=== PATIENT | female | born 1965 | race Caucasian/White ===

== ENCOUNTER 2016-11-09 05:34 | Inpatient (IN) | payer OTHER ==
[2016-11-09] VITALS (33 sets, daily range): BP systolic 106–149; BP diastolic 54–96; PULSE 57–87; RESP 13–22; TEMP 99; Ht 167.6 cm; Wt 75.0 kg
[~2016-11-09] VITALS: Ht 167.6 cm; Wt 75.0 kg
--- NOTE | 2016-11-09 05:53 | RADRPT ---
PROCEDURE: CT brain without contrast. CLINICAL INDICATION: Stroke. TECHNIQUE: CT scan of the brain was performed on a multi-detector high-resolution CT scanner. Co ntiguous axial images were obtained from the skull base to the vertex without intravenous contrast. Coronal and sagittal reformatted images were also obtained. Images were reviewed on the PACS works tation. One or more of the following dose reduction techniques were used: - Automated exposure control. - Adjustment of the mA and/or kV according to patient size. - Use of iterative reconstruction technique. Exam CTD/vol = 45.01 mGy. Total exam DLP = 720.23 mGy-cm. COMPARISON: None. FINDINGS: There is an area of parenchymal hemorrhage centered within the left basal ganglia measuring 2.3 x 1. 3 cm with mild adjacent edema. There are chronic lacunar infarcts within the right thalamus. The chong tricles and cortical sulci are within normal limits for patient's age. There is no midline shift. Th ere is no abnormal extra-axial collection. The calvarium is intact. There is no evidence of fracture. Visualized paranasal sinuses and mastoid air cells are clear. IMPRESSION: Area of parenchymal hemorrhage centered within the left basal ganglia measuring 2.3 x 1.3 cm. There is no midline shift. Chronic lacunar infarcts within the right thalamus. A call report was made to Dr. Norton at 05:46 a.m. .Jonnathan Copeland MD, MD Date Time Electronically viewed and signed by .Jonnathan Copeland MD, MD on 11/09/2016 05:52 .T/
[2016-11-09] MEDS ORDERED: niCARdipine-NS 0.1MG/ML DRIP 200 ML IV SCH (06:00)
--- NOTE | 2016-11-09 06:06 | ERA ---
ER Documentation Chief Complaint Date/Time DATE: 11/09/16 TIME: On arrival Chief Complaint HPI . . . The patient is a 51-year-old female, presenting to the ER because of acute headache, acute right-sided weakness that began about 4:45 AM while she was at work. She complains of headache, slurred speech, denies chest pain, dyspnea, abdominal pain, vomiting, dysuria, diarrhea. She does not smoke nor drink. Past medical history: Hypertension Past surgical history: None ROS All systems reviewed and are negative except as per history of present illness. Physical Exam Vitals Vital Signs Date Time Temp Pulse Resp B/P Pulse Ox O2 Delivery O2 Flow Rate FiO2 11/09/16 05:40 99.0 92 16 228/147 94 Nasal Cannula 2.0 11/09/16 05:40 99.0 88 16 228/147 94 Physical Exam Const: No acute distress. Head: Atraumatic. Eyes: Normal Conjunctiva. ENT: Normal External Ears, Nose and Mouth. Neck: Full range of motion. No meningismus. Resp: Clear to auscultation bilaterally. Cardio: Regular rate and rhythm. Abd: Soft, non distended, normal bowel sounds, non tender. Skin: No petechiae or rashes. Back: No midline or flank tenderness. Ext: No cyanosis, or edema. Neur: Awake and alert.Left facial droop, right upper and right lower extremity 3+, left upper and left lower extremity 5/5 Psych: Normal Mood and Affect. Results 24 hrs Current Medications Medications (Trade) Dose Ordered Sig/Tenzin Route PRN Reason Start Time Stop Time Status Last Admin Dose Admin Nicardipine HCl (Cardene Iv) 200 ml @ 50 mls/hr TITRATE IV 11/09/16 06:00 11/09/16 05:55 Procedures/[place] [id number] Radiology Main Line: [phone] DIAGNOSTIC IMAGING REPORT Patient: DANA MENDENHALL : 1965 Age: 51 Sex: M MR #: [id number] DOS: 11/09/16 0537 Ordering MD: LUCÍA HOGUE MD Location: E/R Room/Bed: PROCEDURE: CT brain without contrast. CLINICAL INDICATION: Stroke. TECHNIQUE: CT scan of the brain was performed on a multi-detector high- resolution CT scanner. Contiguous axial images were obtained from the skull base to the vertex without intravenous contrast. Coronal and sagittal reformatted images were also obtained. Images were reviewed on the PACS workstation. One or more of the following dose reduction techniques were used: - Automated exposure control. - Adjustment of the mA and/or kV according to patient size. - Use of iterative reconstruction technique. Exam CTD/vol = 45.01 mGy. Total exam DLP = 720.23 mGy-cm. COMPARISON: None. FINDINGS: There is an area of parenchymal hemorrhage centered within the left basal ganglia measuring 2.3 x 1.3 cm with mild adjacent edema. There are chronic lacunar infarcts within the right thalamus. The ventricles and cortical sulci are within normal limits for patient's age. There is no midline shift. There is no abnormal extra-axial collection. The calvarium is intact. There is no evidence of fracture. Visualized paranasal sinuses and mastoid air cells are clear. IMPRESSION: Area of parenchymal hemorrhage centered within the left basal ganglia measuring 2.3 x 1.3 cm. There is no midline shift. Chronic lacunar infarcts within the right thalamus. A call report was made to Dr. Hogue at 05:46 a.m. .Jonnathan Copeland MD, Date Time Electronically viewed and signed by .Jonnathan Copeland MD, MD on 11/09/2016 05:52 .T/ CC: LUCÍA HOGUE Chest x-ray and all labs are pending MEDICAL MAKING DECISION: The patient is a 51-year-old female, presenting with acute hemorrhagic stroke with right hemiparesis, acute hypertensive emergency. She was started on Cardene IV drip maintained systolic blood pressure between 130-140. Consultation: I discussed the person with the stroke neurologist Dr Mirza after exmining the patient and on her way to radiology. I discussed neurosurgeon Dr Arreola at 5:52 am, who was made aware of the CT scan finding and patient condition. He accepted the consult Departure Diagnosis: Primary Impression: Hemorrhagic stroke Additional Impressions: Right hemiparesis Hypertensive emergency Condition: Critical Comments I discussed the findings with the patient. I discussed the patient with the on- call hospitalist Dr. Feng at 5:55 am who was made aware of the pending lab, the treatment, the patient condition. The patient is admitted to ICU Critical Care: Time: 35 minutes excluding all billable procedures. Treatments/Evaluations: Close monitoring and treatment of unstable vital signs, cardiorespiratory, and neurologic status, while maintaining tight balance of fluid, respiratory, and cardiac interventions. LUCÍA HOGUE MD Nov 09, 2016 06:06
[2016-11-09] MEDS ORDERED: SOD CHLORIDE 0.9% 1,000 ML IV SCH (06:33)
[2016-11-09 06:37] LABS: BASOPHILS % 0.4 % (0.0-2.0); EOSINOPHILS # 0.2 10^3/ul (0.0-0.5); EOSINOPHILS % 2.4 % (0.0-7.0); HEMOGLOBIN 14.1 g/dl (14.0-18.0); LYMPHOCYTES # 2.2 10^3/ul (0.8-2.9); LYMPHOCYTES % 25.8 % (15.0-51.0); MEAN CORPUSCULAR HEMOGLOBIN 30.2 pg (29.0-33.0); MEAN CORPUSCULAR HGB CONC 34.4 g/dl (32.0-37.0); MEAN CORPUSCULAR VOLUME 87.8 fl (82.0-101.0); MEAN PLATELET VOLUME 9.7 fl (7.4-10.4); MONOCYTE # 0.5 10^3/ul (0.3-0.9); MONOCYTES % 5.6 % (0.0-11.0); NEUTROPHILS % 65.6 % (39.0-77.0); PLATELET COUNT 340 10^3/UL (140-415); RED BLOOD COUNT 4.67 10^6/ul (4.70-6.10); RED CELL DISTRIBUTION WIDTH 12.9 % (11.5-14.5); WHITE BLOOD COUNT 8.4 10^3/ul (4.8-10.8)
--- NOTE | 2016-11-09 06:43 | STROKE ---
Date/Time of Note Date/Time of Note DATE: 11/09/16 TIME: 06:10 Patient Information General Patient location: emergency Arrival Date Age 51 Gender male Weight 0 g Vital Signs Vital Signs Vital Signs Date Time Temp Pulse Resp B/P Pulse Ox O2 Delivery O2 Flow Rate FiO2 11/09/16 05:40 99.0 92 16 228/147 94 Nasal Cannula 2.0 History & Physical Patient History Notes Pt Hx Reviewed History of Present Illness 51yo F presents with acute onset right sided weakness. Patient woke up normal at 4:45am and developed sudden onset slurred speech and right sided weakness at 5am. Review of Systems Constitutional: no symptoms reported EENTM: no symptoms reported Respiratory: no symptoms reported Cardiovascular: no symptoms reported Gastrointestinal: no symptoms reported Genitourinary: no symptoms reported Musculoskeletal: no symptoms reported Skin: no symptoms reported Psychiatric/Neurological: no symptoms reported All Other Systems: Reviewed and Negative NIH Stroke Scale NIH Stroke Scale 1A - Level of Conciousness: 0 - Alert keenly [id number] LOC Questions: 0 - Answers both [id number] - LOC Commands: 0 - Performs both tasks2 - Best Gaze: 0 - Normal3 - Visual: 0 - No visual loss4 - Facial Palsy: 2 - Complete [id number] - Motor Arm - Left: 1 - [id number] - Motor Arm - Right: 0 - No drift 6A - Motor Leg - Left: 2 - Some effort to [id number] - Motor Leg - Right: 0 - No drift7 - Limb Ataxia: 0 - Absent8 - Sensory: 0 - Normal9 - Best Language: 0 - No aphasia or normalDysarthria: 1 - Mild to [id number] - Extinction and inattentio: 0 - No abnormalityTotal Score: 6 Date/Time Recorded DATE: 11/09/16 TIME: 06:10 Submitted By Tyrone Jin t-PA Imaging Review Imaging Reviewed: Yes Date/Time Imaging Reviewed DATE: 11/09/16 TIME: 06:10 Imaging Findings left basal ganglia hemorrhage t-PA Administration Recommendation: No Weight 0 g Recommedation submitted by Tyrone Jin Reason t-PA not Recommended hemorrhage seen on CT t-PA Not Recommended Date/Time 11/09/16 5:55am Recommendations Impression Diagnosis intracerebral hemorrhage Recommendation 51yo F presents with acute onset right sided weakness. Neurological exam is notable for right face, arm, and leg weakness and mild dysarthria. CT Head demonstrates left basal ganglia hemorrhage. Patient has had intracerebral hemorrhage. ICH score is 0. I recommend neurosurgery consultation and maintain systolic blood pressure less than 140mmg Hg. I recommend repeat CT head in 4 hours. Diagnostic Labs: Lipid Proile CMP CBC w/Diff Coags Therapy: Physical Therapy Speech Therapy Occupational Therapy Misc. Recommendations: Bedside Swallow Evaluation Pnumatic Compression Devices Stroke Education Smoking Education TYRONE JIN Nov 09, 2016 06:43
[2016-11-09 06:44] LABS: ADD UMIC YES; UR ASCORBIC ACID NEGATIVE (NEGATIVE); UR BACTERIA FEW /HPF (NONE SEEN); UR BILIRUBIN (Dip) NEGATIVE (NEGATIVE); UR BLOOD (Dip) NEGATIVE (NEGATIVE); UR CLARITY CLEAR (CLEAR); UR COLOR STRAW (YELLOW); UR GLUCOSE (Dip) NEGATIVE (NEGATIVE); UR KETONES (Dip) NEGATIVE (NEGATIVE); UR LEUKOCYTE ESTERASE (Dip) TRACE Leu/ul (NEGATIVE); UR NITRITE (Dip) NEGATIVE (NEGATIVE); UR RBC 1 /HPF (0-5); UR TOTAL PROTEIN (Dip) 2+ mg/dl (NEGATIVE); UR UROBILINOGEN (Dip) NEGATIVE (NEGATIVE)
[2016-11-09 07:00] LABS: INR 0.86; PROTIME 11.7 Sec (12.2-14.2); PT RATIO 0.9
[2016-11-09] MEDS ORDERED: niCARdipine 25 MG in SOD CHLORIDE 0.9% 240 ML IV SCH ×2 (07:00→12:00)
[2016-11-09] MEDS ORDERED: ACETAMINOPHEN 650 MG SUPP PR PRN (07:00)
[2016-11-09] MEDS ORDERED: ONDANSETRON 4 MG INJ IV PRN (07:00)
[2016-11-09] MEDS ORDERED: ACETAMINOPHEN 325 MG TAB PO PRN ×2 (07:00→12:00)
--- NOTE | 2016-11-09 07:03 | RADRPT ---
PROCEDURE: Chest. CLINICAL INDICATION: Chest pain. TECHNIQUE: Two frontal views of the chest were obtained. COMPARISON: None. FINDINGS: The cardiac silhouette is enlarged. The aortic arch is uncoiled. There is pulmonary venous congest ion and interstitial edema. There is no focal consolidation or pleural effusion. There is no pneumo thorax. IMPRESSION: Cardiomegaly with pulmonary venous congestion and interstitial edema. .Jonnathan Copeland MD, MD Date Time Electronically viewed and signed by .Jonnathan Copeland MD, MD on 11/09/2016 07:02 .T/
[2016-11-09 07:05] LABS: CALCIUM 9.3 mg/dl (8.4-10.2); CREATININE 0.68 mg/dl (0.61-1.24); POTASSIUM 3.4 mmol/L (3.5-5.1)
[2016-11-09 07:06] LABS: BARBITURATES Negative (NEGATIVE); BENZODIAZEPINES Negative (NEGATIVE); CANNABINOIDS Negative (NEGATIVE); COCAINE Negative (NEGATIVE); OPIATES Negative (NEGATIVE); PARTIAL THROMBOPLASTIN TIME 28.4 Sec (25.0-35.0)
[2016-11-09 07:17] LABS: TROPONIN-I 0.015 ng/ml (0.00-0.12)
[2016-11-09] MEDS: DOCUSATE SODIUM 100 MG CAP PO SCH ×2 (09:00→20:47)
--- NOTE | 2016-11-09 11:58 | HP ---
Date/Time of Note Date/Time of Note DATE: 11/09/16 TIME: 11:48 Assessment/Plan VTE Prophylaxis VTE Prophylaxis Intervention: contraindicated Lines/Catheters IV C[facility]ter Type [facility]from [facility]): Saline [facility] Assessment/Plan Chief Complaint/Hosp Course 51 yo female with hypertension who presents with acute hemorrhagic stroke causing RUE weakness Acute hemorrhagic stroke: - Serial neuro exams, CT stat for any change - Currently breathing normally, protecting airway - Swallow eval - Nicardipine to SBP < 150 - Avoid AC or antiplatelet agents - Head of bed > 30 degrees - SCDs - Dr Rausch to see patient tomorrow Hypertension: - Nicardipine as above, hold home meds PPx: SCDs Problems: HPI/ROS Admit Date/Time Admit Date/Time Hx of Present Illness 51 yo female with h/o hypertension who presented with acute onset of weakness in her legs/imbalance, slurred speech and R hand weakness. Moffit well prior to waking up with these symptoms this morning. Came to ED, shown to have acute ICH on CT, stable on repeat imaging When seen following these events, feels generally comfortable. She is alert and normally conversant. Major complaint is of weakness in her RUE mostly in the hand. Other neurologic symptoms seem to have resolved ROS Constitutional: improved, no complaints Eyes: no complaints ENT: no complaints Respiratory: no complaints Cardiovascular: no complaints Gastrointestinal: no complaints Genitourinary: no complaints Musculoskeletal: no complaints Skin: no complaints Neurologic: no complaints Endocrine: no complaints Lymphatic: no complaints Psychological: nl mood/affect, no complaints Immunologic: no complaints PMH/Family/Social Past Medical History Medical History: hypertension Past Surgical History Past Surgical Hx: no surgical history Family History Significant Family History: no pertinent family hx Social History Alcohol Use: none Smoking Status: Former smoker Drug Use: none Exam/Review of Systems Vital Signs Vitals Vital Signs Date Time Temp Pulse Resp B/P Pulse Ox O2 Delivery O2 Flow Rate FiO2 11/09/16 10:34 99.0 84 16 205/108 94 Nasal Cannula 2.0 Exam Exam Comfortable appearing, NAD, AOx3 Perhaps a slight R side facial droop, cranial nerves otherwise in tact RUE with weakness in her hand 2/5 at the elbow and shoulder though seems limited by pain in shoulder Sensation seems in tact throughout FNF was normal on L, unalbe to test on the right Breathing normally, GCS 15, no concern for airway compromise or obtundation etc Legs with 5/5 sternght and normal sensation CV: RRR, no murmurs, flat neck veins Lungs are clear Abdomen soft nt nd Labs Result Diagram: 11/09/16 0550 11/09/16 0550 Medications Medications Current Medications Ondansetron HCl (Zofran Inj) 4 mg Q6H PRN IV NAUSEA AND/OR VOMITING; Start 11/09 at 07:00 Acetaminophen (Tylenol Supp) 650 mg Q4H PRN NV PAIN LEVEL 1-3 OR FEVER; Start 11/09/16 at 07:00 Pantoprazole (Protonix Iv) 40 mg DAILY@06 IV ; Start 11/10/16 at 06:00 Acetaminophen (Tylenol Tab) 650 mg Q4H PRN PO TEMP GREATER THAN 99.6F; Start at 07:00 Docusate Sodium (Colace) 100 mg BID PO Last administered on 11/09/16t 09:00; Admin Dose 100 MG; Start 11/09/16 at 09:00 ROMERO SAENZ MD Nov 09, 2016 11:58
[2016-11-09] MEDS ORDERED: FUROSEMIDE 20 MG INJ IV ONE (12:30)
[2016-11-09] MEDS: niCARdipine 50 MG in SOD CHLORIDE 0.9% 480 ML IV SCH ×2 (16:17→21:25)
--- NOTE | 2016-11-09 20:14 | CONS ---
Date/Time of Note Date/Time of Note DATE: 11/09/16 TIME: 12:00 Assessment/Plan Assessment/Plan Additional Assessment/Plan Date of consultation: November 09, 2016 Requesting physician: Dr. Norton with the emergency department Consulting service: Neurosurgery This is a 51-year-old female with past medical history significant for hypertension who developed acute onset headache and right hemiparesis, numbness and some speech difficulty. The patient was found to have an intracranial hemorrhage and neurosurgery was consulted. The patient says that her right upper extremity strength has already improved since being admitted. She also says that her speech is improved. She however has right-sided numbness. She denies loss of consciousness. She denies seizures or convulsions. She denies diplopia. She says that she does have hypertension but has not been taking her blood pressure medication because she ran out of medications that she normally picks up from [facility]. At the time of her arrival she was found to be very hypertensive and started on a Cardene drip. Past medical history: Hypertension Allergies: No known drug allergies Social history: The patient has a prior history of using tobacco is not a current smoker. She does not drink alcoholic beverages. She does not use illicit or recreational drugs. Family History: Noncontributory Medications: The patient's medications have been noted and reviewed in the chart. Review of systems: Please see above for positive preference and negatives. The patient denies chest pain or shortness of breath. Physical examination: The patient is seen in the emergency department but is in ICU status because there are no beds available yet for the patient. She is lying in bed neck to her . She is awake alert and oriented 4. Her language appears to be grossly fluent. Her face is symmetric. Extraocular movements are intact. Muscle bulk and tone is normal bilateral upper and lower extremities. Motor strength on the left is 5 minus out of 5 upper and lower extremity. Motor strength on the right upper extremity is 4 minus out of 5 and right lower extremity is 4 out of 5. There is a right pronator drift. Sensation on the right side is grossly decreased when compared to the left. Gait testing has been deferred per patient request. Imaging: The patient has received a CT head without contrast as well as a follow -up CT in about 5-6 hours that shows a left basal ganglia hemorrhage that is stable in size without significant mass effect. There is no midline shift. Basal cisterns are open. Assessment/plan: The patient stable left basal ganglia hemorrhage is most likely related to the patient's uncontrolled blood pressure. The patient appears to be noncompliant with her blood pressure medications on an outpatient basis. Once the patient's blood pressure can be better controlled and converted from IV to by mouth pain medications the patient can be transferred out of the ICU to the regular floor. No further imaging studies of her head are required unless the patient develops an acute sensorimotor change. There is no acute neurosurgical intervention indicated. The patient will benefit from aggressive physical therapy and occupational therapy. DENISE ESTRELLA MD Nov 09, 2016 20:14
[2016-11-10] VITALS (62 sets, daily range): BP systolic 93–186; BP diastolic 52–115; PULSE 49–84; RESP 11–25
[2016-11-10] MEDS ORDERED: PANTOPRAZOLE 40 MG INJ IV SCH (06:00)
[2016-11-10] MEDS: DOCUSATE SODIUM 100 MG CAP PO SCH ×2 (08:33→21:00)
--- NOTE | 2016-11-10 10:00 | RADRPT ---
AMENDMENT: 11/10/2016 9:59:38 AM Tommy Spencer M.D. PROCEDURE: CT Brain without contrast. CLINICAL INDICATION: 59 year-old female with history of intracranial hemorrhage. TECHNIQUE: A CT of the brain was performed on a [employer] CT scanner utilizi ng a low dose technique with axial imaging from the skull base through the vertex without IV contras t. Multiplanar reformatted images were made. Images were reviewed on a PACS workstation. The CTDI vol is 44.33 mGy and the DLP is 720.23 mGycm. One or more of the following dose reduction techniques were used: - Automated exposure control. - Adjustment of the mA and/or kV according to patient size. Use of iterative reconstruction technique. COMPARISON: None FINDINGS: The fourth ventricle is normal in size. There is a reniform shape hemorrhage in the left basal gangl ia measuring 2.1 cm transverse by 2.3 cm in height by up to 1.4 cm AP. This has shown little change in size as compared to 11/09/2016 at 05:39 a.m. There is minimal surrounding vasogenic edema. A jason iform shape hemorrhage is identified in the left basal ganglia measuring 2.1 cm transverse. There is no significant subfalcine or transtentorial herniation noted. There is no evidence of hydrocephalou s. The visible portions of the globes and extraocular muscles are normal. The paranasal sinuses are cl ear. The mastoid air cells and internal auditory canals are normal. The bony calvarium is intact. IMPRESSION: 1. 2.1 cm transverse by 2.3 cm in height by 1.4 cm acute hemorrhage with mild surrounding vasogenic edema in the left basal ganglia. This is only little changed as compared to the prior study. The pr eviously measured 2.2 cm transverse by up to 1.3 cm AP by 2.2 cm in height. 2. Findings were phoned to the emergency room to Dr. Kris Quan at 10:44 a.m.. RPTAT:AAJJ Physician Emiliano Date Time Electronically viewed and signed by Physician Emiliano on 11/10/2016 09:59 YAHAIRA/
[2016-11-10 10:44] LABS: BASOPHILS % 0.6 % (0.0-2.0); EOSINOPHILS # 0.1 10^3/ul (0.0-0.5); EOSINOPHILS % 1.9 % (0.0-7.0); HEMATOCRIT 43.1 % (37.0-47.0); HEMOGLOBIN 13.8 g/dl (12.0-16.0); LYMPHOCYTES # 1.8 10^3/ul (0.8-2.9); LYMPHOCYTES % 26.3 % (15.0-51.0); MEAN CORPUSCULAR HEMOGLOBIN 28.7 pg (29.0-33.0); MEAN CORPUSCULAR VOLUME 89.6 fl (82.0-101.0); MEAN PLATELET VOLUME 9.5 fl (7.4-10.4); MONOCYTE # 0.6 10^3/ul (0.3-0.9); MONOCYTES % 8.2 % (0.0-11.0); NEUTROPHILS % 62.9 % (39.0-77.0); PLATELET COUNT 375 10^3/UL (140-415); RED BLOOD COUNT 4.81 10^6/ul (4.20-5.40); RED CELL DISTRIBUTION WIDTH 13.6 % (11.5-14.5); WHITE BLOOD COUNT 6.8 10^3/ul (4.8-10.8)
[2016-11-10 11:03] LABS: ALBUMIN 3.9 g/dl (3.3-4.9); ALBUMIN/GLOBULIN RATIO 1.18; BILIRUBIN,INDIRECT 0.5 mg/dl (0-1.1); BILIRUBIN,TOTAL 0.5 mg/dl (0.2-1.3); CALCIUM 9.3 mg/dl (8.4-10.2); CREATININE 0.71 mg/dl (0.44-1.00); POTASSIUM 3.5 mmol/L (3.5-5.1); TOTAL PROTEIN 7.2 g/dl (6.1-8.1)
--- NOTE | 2016-11-10 11:08 | RADRPT ---
Echocardiogram Report Patient Name: DANA MENDENHALL Gender: Female Date: 1965 Study Date: 09-Nov-2016 Drawer In Dobby Loom: Wander Walker [facility] Location: [facility] Ref. Physician: EDSON HEREDIA Quality: Adequate Procedures: Transthoracic echocardiogram with complete 2D, M-Mode, and doppler examination. Indications: Hemorrhagic stroke. 2D/M Mode Doppler Measurement Value Normal Ranges Measurement Value Normal Ranges LVIDd 2D 4.6 3.5 - 5.6 cm AV Peak Jose 2.2 m/sec LVIDs 2D 2.8 2.1 - 4.1 cm AV Peak PG 20.0 mmHg FS 2D 38.7 % AI Peak PG 47.0 mmHg LVPWd 2D 1.3 0.6 - 1.1 cm AI Peak Jose 3.4 m/sec IVSd 2D 1.3 0.6 - 1.1 cm AI PHT 757.0 msec IVS/LVPW 2D 1.0 LVOT Peak Jose 1.5 m/sec AoR Diam 2D 3.1 2.0 - 3.7 cm LVOT Peak PG 9.0 mmHg LA/Ao 2D 1 0 - 1 MV E Peak Jose 0.8 m/sec EDV 2D 99.3 cm3 MV A Peak Jose 0.9 m/sec ESV 2D 22.9 cm3 MV E/A 0.8 LA Dimen 2D 3.7 2.3 - 4.0 cm MV Decel Time 155 msec RVOT Diam 1.1 cm MV E/A 0.8 Findings Left Ventricle: Normal left ventricular systolic function. Normal left ventricular cavity size. Mild concentric left ventricular hypertrophy. Ejection fraction is visually estimated at 65 %. Abnormal Diastolic Function. Right Ventricle: Normal right ventricular size. Normal right ventricular systolic function. Left Atrium: The left atrium is normal in size. Right Atrium: The right atrium is normal in size. Mitral Valve: Mild mitral leaflet calcification. Mild mitral annular calcification. Trace mitral regurgitation. Aortic Valve: Aortic sclerosis without stenosis. Mild to moderate aortic valve regurgitation. Tricuspid Valve: Normal appearance of the tricuspid valve. Unable to obtain RVSP due to minimal presence of tricuspid regurgitation. There is trace tricuspid regurgitation. Pulmonic Valve: Pulmonic valve not well visualized. There is trace pulmonic regurgitation. Pericardium: Normal pericardium with no significant pericardial effusion. Aorta: Normal aortic root. IVC: Normal size and normal respiratory collapse consistent with normal right atrial pressure. Conclusions 1.Normal left ventricular systolic function. Normal left ventricular cavity size. Mild concentric left ventricular hypertrophy. Ejection fraction is visually estimated at 65 %. Abnormal Diastolic Function. 2.Aortic sclerosis without stenosis. Mild to moderate aortic valve regurgitation. Electronically Signed By: Holden Katz 10-Nov-2016 11:07:43 -0700 Patient Name: DANA MENDENHALL Study Date: 09-Nov-2016 [id number]
[2016-11-10] MEDS ORDERED: LISINOPRIL 5 MG TAB PO SCH (12:30)
[2016-11-10] MEDS: niCARdipine 50 MG in SOD CHLORIDE 0.9% 480 ML IV SCH ×2 (14:30→20:00)
--- NOTE | 2016-11-10 14:44 | DS ---
Date/Time of Note Date/Time of Note DATE: 11/10/16 TIME: 14:31 Discharge Summary Admission/Discharge Info Admit Date/Time Nov 09, 2016 at 06:39 Discharge Date/Time Discharge Diagnosis Intracerebral hemorrhage Patient Condition: Fair Hx of Present Illness 51 yo female with h/o hypertension who presented with acute onset of weakness in her legs/imbalance, slurred speech and R hand weakness. [place] well prior to waking up with these symptoms this morning. Came to ED, shown to have acute ICH on CT, stable on repeat imaging When seen following these events, feels generally comfortable. She is alert and normally conversant. Major complaint is of weakness in her RUE mostly in the hand. Other neurologic symptoms seem to have resolved Hospital Course The patient is a 51 yo female with presented on 11/09 at 5 AM with acute onset R sided weakness and slurred speech. She was in hypertensive emergency with BP of 205/110 and mild pulmonary edema. Head CT in the ED showed an "acute area of parenchymal hemorrhage centered within the left basal ganglia measuring 2.3 x 1.3 cm. There is no midline shift. Chronic lacunar infarcts within the right thalamus." She was started on a nicardipine drip to normalize her blood pressure. She was given a dose of lasix for her mild hypoxia/pulmonary edema. Her respiratory status improved quickly to normal with normalization of her BP. Later in the day on 11/09 she underwent a follow up head CT which showed: "2.1 cm transverse by 2.3 cm in height by 1.4 cm acute hemorrhage with mild surrounding vasogenic edema in the left basal ganglia. This is only little changed as compared to the prior study. The previously measured 2.2 cm transverse by up to 1.3 cm AP by 2.2 cm in height." The patient was titrated off of nicardipine drip and Coreg and lisinopril were added to control her BP. She had no worsening of her neurologic deficits which include mild dysarthria which is difficult to appreciate as well as R hand numbness and weakness. She worked with PT and was recommended for inpatient rehab. She underwent TTE which showed normal EF and mild LVH She was transferred to [place] on HOD2 where she is capitated. Home Meds No Active Prescriptions or Reported Meds Primary Care Provider Care Physician No Primary Time spent on discharge: > 30 minutes Pending Labs Laboratory Tests Test 11/10/16 09:35 White Blood Count 6.810^3/ul (4.8-10.8) Red Blood Count 4.8110^6/ul (4.20-5.40) Hemoglobin 13.8g/dl (12.0-16.0) Hematocrit 43.1% (37.0-47.0) Mean Corpuscular Volume 89.6fl (82.0-101.0) Mean Corpuscular Hemoglobin 28.7pg (29.0-33.0) Mean Corpuscular Hemoglobin Concent 32.0g/dl (32.0-37.0) Red Cell Distribution Width 13.6% (11.5-14.5) Platelet Count 01740^3/UL (140-415) Mean Platelet Volume 9.5fl (7.4-10.4) Neutrophils % 62.9% (39.0-77.0) Lymphocytes % 26.3% (15.0-51.0) Monocytes % 8.2% (0.0-11.0) Eosinophils % 1.9% (0.0-7.0) Basophils % 0.6% (0.0-2.0) Nucleated Red Blood Cells % 0.0/100WBC (0.0-0.0) Neutrophils # (Manual) 4.310^3/ul (1.7-7.5) Lymphocytes # 1.810^3/ul (0.8-2.9) Monocytes # 0.610^3/ul (0.3-0.9) Eosinophils # 0.110^3/ul (0.0-0.5) Basophils # 0.010^3/ul (0.0-0.1) Nucleated Red Blood Cells # 0.010^3/ul (0.0-0.0) Sodium Level 138mmol/L (135-144) Potassium Level 3.5mmol/L (3.5-5.1) Chloride Level 104mmol/L (97-110) Carbon Dioxide Level 27mmol/L (21-31) Anion Gap 11 (8-16) Blood Urea Nitrogen 15mg/dl (7-20) Creatinine 0.71mg/dl (0.44-1.00) Glucose Level 98mg/dl (70-220) Calcium Level 9.3mg/dl (8.4-10.2) Total Bilirubin 0.5mg/dl (0.2-1.3) Direct Bilirubin 0.00mg/dl (0.00-0.20) Indirect Bilirubin 0.5mg/dl (0-1.1) Aspartate Amino Transf (AST/SGOT) 37IU/L (15-46) Alanine Aminotransferase (ALT/SGPT) 47IU/L (13-69) Alkaline Phosphatase 112IU/L (42-121) Total Protein 7.2g/dl (6.1-8.1) Albumin 3.9g/dl (3.3-4.9) Globulin 3.30g/dl (1.3-3.2) Albumin/Globulin Ratio 1.18 ROMERO SAENZ MD Nov 10, 2016 14:42
--- NOTE | 2016-11-10 14:50 | CONS ---
Date/Time of Note Date/Time of Note DATE: 11/10/16 TIME: 14:42 Assessment/Plan Assessment/Plan Chief Complaint/Hosp Course 51 year old female with untreated hypertension p/w acute onset headache, right sided weakness with acute left basal ganglia hemorrhage secondary to hypertensive arteriopathy. Recommend: continue close neuro checks maintain SBP<140/90 now on Coreg, Lisinopril consider addition of Nifedipine XL holding all antiplatelets and AC repeat Head CT shows stable hemorrhage, repeat imaging for any decline in her examination MRI Brain +/- contrast in 1-2 months to evaluate for potential vascular underlying lesion, however most likely suspect hypertensive arteriopathy as etiology of bleed optimize risk factors for secondary stroke prevention FLP, HBA1C baseline ECHO DVT ppx SCD PT/OT/Speech may benefit from AR stable for transfer to [place] Problems: Consultation Date/Type/Reason Admit Date/Time 11/10/16 Date of Consultation: Nov 10, 2016 Type of Consultation: Neurology Reason for Consultation ICH Referring Provider: ROMERO SAENZ MD Hx of Present Illness 51 year old female with history of hypertension non-compliant with medications p /w acute onset of headache and right hemiparesis, aphasia that began Friday. CTH shows acute left basal ganglia hemorrhage 2.3 x 1.3 cm in size with no midline shift, chronic lacunar infarcts in the right thalamus also seen. Repeat Head CT showed stable hemorrhage. On admission she was started on cardene for optimal blood pressure control, remains hypertensive up to 180 range. Her exam remains stable, she has some mild receptive aphasia with right facial weakness and right arm weakness as well as decreased sensation on right side. Currently remains in the ICU for monitoring, planned tx to [place]. right sided numbness Eyes: no complaints ENT: no complaints Respiratory: no complaints Cardiovascular: no complaints Gastrointestinal: no complaints Genitourinary: no complaints Musculoskeletal: no complaints Skin: no complaints Neurologic: no complaints Lymphatic: no complaints Psychological: nl mood/affect, no complaints Immunologic: no complaints Past Medical History Medical History: hypertension Past Surgical History Past Surgical Hx: no surgical history Social History Alcohol Use: none Smoking Status: Never smoker Drug Use: none Exam/Review of Systems Vital Signs Vitals Vital Signs Date Time Temp Pulse Resp B/P Pulse Ox O2 Delivery O2 Flow Rate FiO2 11/10/16 13:15 52 12 147/71 99 11/10/16 08:00 Nasal Cannula 4.0 11/10/16 00:01 97.9 Intake and Output 11/09/16 11/09/16 11/10/16 15:00 23:00 07:00 Intake Total 0 ml 195 ml 0 ml Output Total 200 ml Balance 0 ml -5 ml 0 ml Exam awake and alert upper sorbian speaking oriented to self, hospital, date some subtle receptive aphasia slow to follow commands can name and repeat with prompting no neglect CN: BEAN, VFF, right facial droop palate upgoing uvula midline scm/trap intact tongue midline Motor: right arm drift few seconds does not hit the bed can maintain over 5 seconds 4/5 strength, LUE and LLE 5./5 RLE 5/5 Sensory intact to DSS, decreased on the right arm and leg Coordination difficult to perform on right in proportion to weakness no ataxia Results Result Diagram: 11/10/1693411/10/16 0935 Results 24 hrs Laboratory Tests Test 11/10/16 09:35 White Blood Count 6.8 Red Blood Count 4.81 Hemoglobin 13.8 Hematocrit 43.1 Mean Corpuscular Volume 89.6 Mean Corpuscular Hemoglobin 28.7 L Mean Corpuscular Hemoglobin Concent 32.0 Red Cell Distribution Width 13.6 Platelet Count 375 Mean Platelet Volume 9.5 Neutrophils % 62.9 Lymphocytes % 26.3 Monocytes % 8.2 Eosinophils % 1.9 Basophils % 0.6 Nucleated Red Blood Cells % 0.0 Neutrophils # (Manual) 4.3 Lymphocytes # 1.8 Monocytes # 0.6 Eosinophils # 0.1 Basophils # 0.0 Nucleated Red Blood Cells # 0.0 Sodium Level 138 Potassium Level 3.5 Chloride Level 104 Carbon Dioxide Level 27 Anion Gap 11 Blood Urea Nitrogen 15 # Creatinine 0.71 Glucose Level 98 Calcium Level 9.3 Total Bilirubin 0.5 Direct Bilirubin 0.00 Indirect Bilirubin 0.5 Aspartate Amino Transf (AST/SGOT) 37 Alanine Aminotransferase (ALT/SGPT) 47 Alkaline Phosphatase 112 Total Protein 7.2 Albumin 3.9 Globulin 3.30 H Albumin/Globulin Ratio 1.18 Medications Medications Current Medications Ondansetron HCl (Zofran Inj) 4 mg Q6H PRN IV NAUSEA AND/OR VOMITING; Start 11/09 at 07:00 Acetaminophen (Tylenol Supp) 650 mg Q4H PRN PA PAIN LEVEL 1-3 OR FEVER; Start 11/09/16 at 07:00 Pantoprazole (Protonix Iv) 40 mg DAILY@06 IV Last administered on 11/10/16 06: 00; Admin Dose 40 MG; Start 11/10/16 at 06:00 Acetaminophen (Tylenol Tab) 650 mg Q4H PRN PO TEMP GREATER THAN 99.6F; Start at 07:00 Docusate Sodium (Colace) 100 mg BID PO Last administered on 11/10/16 08:33; Admin Dose 100 MG; Start 11/09/16 at 09:00 Acetaminophen (Tylenol Tab) 650 mg Q4H PRN PO TEMP GREATER THAN 99.6F; Start at 12:00 Lisinopril (Zestril) 5 mg DAILY PO Last administered on 11/10/16 14:06; Admin Dose 5 MG; Start 11/10/16 at 12:30 Furosemide (Lasix) 20 mg DAILY PO ; Start 11/11/16 at 09:00 Carvedilol (Coreg) 6.25 mg BID PO ; Start 11/10/16 at 21:00 LOLA TELLEZ MD Nov 10, 2016 14:50
--- NOTE | 2016-11-10 14:54 | RADRPT ---
PROCEDURE: XR Chest. CLINICAL INDICATION: Congestive heart failure . TECHNIQUE: Single frontal chest x-ray. COMPARISON: None. FINDINGS: Cardiomegaly with decrease hilar congestion and interstitial edema is noted. . There are no new infi ltrates or effusions.. No evidence pneumothorax.. The osseous structures are intact. IMPRESSION: Cardiomegaly with decreased hilar congestion and interstitial edema.. RPTAT: [facility] .Tommy Raymundo MD, MD Date Time Electronically viewed and signed by .Tommy Raymundo MD, MD on 11/10/2016 14:54 .L/
[2016-11-11] MEDS ORDERED: FUROSEMIDE 20 MG TAB PO SCH (09:00)
== END 2016-11-10 23:30 | disposition short-term general hospital (02) | DRG 64 ==
LOC: E/R 05:34 → EDSEX 05:34 → ICU 06:39
PROVIDERS: ADMIT Family Medicine; ATTEND Family Medicine
DX: I61.9 Nontraumatic intracerebral hemorrhage, unspecified (principal); G93.6 Cerebral edema; I50.33 Acute on chronic diastolic (congestive) heart failure; G81.91 Hemiplegia, unspecified affecting right dominant side; R47.01 Aphasia; I16.1 Hypertensive emergency; R29.810 Facial weakness; I11.0 Hypertensive heart disease with heart failure; Z87.891 Personal history of nicotine dependence
CPT/HCPCS: 36415; 70450; 71010; 80048; 80053; 80307; 81001; 83036; 83880; 84484; 85025; 85610; 85730; 87081; 93306; 96374; 97162; J1940; C9113; J7030; J7040; J7050